=== PATIENT | female | born 1975 ===

== ENCOUNTER 2018-07-07 21:04 | Emergency (ER) | payer OTHER | END 2018-07-07 21:39 | disposition left against medical advice (07) | LOC: UCEAST 21:04 | DX: T14.90XA Injury, unspecified, initial encounter (principal); W54.0XXA Bitten by dog, initial encounter; Y92.9 Unspecified place or not applicable; Z53.21 Procedure and treatment not carried out due to patient leaving prior to being seen by health care provider ==